=== PATIENT | female | born 1940 | race Caucasian/White ===

== ENCOUNTER 2017-11-26 10:45 | Emergency (ER) | payer MEDICARE, OTHER ==
[2017-11-26 11:17] LABS: #Basophils 0.1 thou/uL (0.0-0.2); #Eosinphils 0.2 thou/uL (0.0-0.7); #Lymphocytes 2.1 thou/uL (1.20-3.40); #Monocytes 0.6 thou/uL (0.11-0.59); %Basophils 1.4 % (0.0-1.0); %Eosinophils 3.1 % (0.0-10.0); %Lymphocytes 29.5 % (21.0-51.0); %Monocytes 8.5 % (0.0-10.0); %Neutrophils 57.5 % (42.0-75.0); Hemoglobin 12.6 g/dL (12.0-16.0); Mean Corpuscular HGB CONC 32.7 g/dL (32.0-36.0); Mean Corpuscular Hemoglobin 27.5 pg (27.0-31.0); Mean Corpuscular Volume 83.9 fl (81.0-99.0); Mean Platelet Volume 8.4 fL (7.4-10.4); Platelet Count 290 thou/uL (130-400); RBC Distribution Width 12.3 % (11.5-14.5)
[2017-11-26 11:27] LABS: Bilirubin Negative (Negative); Blood, Urine Negative (Negative); Clarity CLEAR (Clear); Glucose, Urine (Dipstick) Negative (Negative); Leukocyte Negative (Negative); Nitrite Negative (Negative); Protein, Urine (Dipstick) Negative (Neg-Trace); Specific Gravity, Urine 1.014 (1.002-1.036); Urobilinogen 0.2 mg/dL (0.2-1.0); pH, Urine 5.5 (5.0-9.0)
[2017-11-26 11:33] LABS: PTT 28.1 SEC (22.9-36.1); Prothrombin Time 12.8 SEC (12.0-14.7)
[2017-11-26 11:39] LABS: ALT (SGPT) 11 U/L (8-55); AST (SGOT) 12 U/L (5-34); Albumin 4.1 g/dL (3.4-4.8); Alkaline Phosphatase 90 U/L (40-150); Anion Gap 12 mmol/L (10-20); BUN (Urea Nitrogen) 27 mg/dL (9.8-20.1); Bilirubin, Total 0.2 mg/dL (0.2-1.2); CK (CPK) 49 U/L (29-168); Calc. Creatinine Clearance 0 mL/min (70-130); Carbon Dioxide 29 mmol/L (23-31); Chloride 102 mmol/L (98-107); Estimated GFR-MDRD 73; Globulin 3.2 g/dL (2.4-3.5); Glucose 180 mg/dL (83-110); Potassium 4.6 mmol/L (3.5-5.1); Protein, Total 7.3 g/dL (6.0-8.3); Sodium 138 mmol/L (136-145)
[2017-11-26 11:43] LABS: CKMB 0.7 ng/mL (0-6.6); Troponin I Less than 0.010 ng/mL (< 0.028)
--- NOTE | 2017-11-26 12:28 | CT ---
CT BRAIN WITHOUT CONTRAST: History: Altered mental status, dementia. FINDINGS: Comparison is made with exam of 03-02-16. Changes of cortical atrophy and chronic small vessel ischemic disease are again seen. The ventricular size is stable and the basilar cisterns patent. No evidence of acute infarct, hemorrhage, midline sh ift or abnormal extraaxial fluid collections are seen. The bony calvarium is intact. The visualized p aranasal sinuses and mastoid air cells are well aerated. IMPRESSION: Stable exam. No CT evidence of acute intracranial process. POS: [facility]
--- NOTE | 2017-11-26 13:44 | RAD ---
SINGLE VIEW OF THE CHEST: COMPARISON: 03/02/16. HISTORY: Altered mental status with left-sided facial paresthesias. Cough. FINDINGS: A single view of the chest shows a normal-size cardiomediastinal silhouette. There is no evidence of consolidation, mass, or pleural effusion. Degenerative changes are seen in the spine. Hardware is seen in the right humerus. IMPRESSION: No evidence of acute cardiopulmonary disease. POS: [facility]
== END 2017-11-26 12:55 | disposition home or self-care (01) ==
LOC: ERS 10:45
DX: R41.82 Altered mental status, unspecified (principal); E11.9 Type 2 diabetes mellitus without complications; K21.9 Gastro-esophageal reflux disease without esophagitis; F32.9 Major depressive disorder, single episode, unspecified; Z79.899 Other long term (current) drug therapy; Z79.84 Long term (current) use of oral hypoglycemic drugs
CPT/HCPCS: 70450; 71045; 80053; 81003; 82553; 84484; 85025; 85610; 85730

== ENCOUNTER 2018-03-23 05:46 | Emergency (ER) | payer MEDICARE ==
--- NOTE | 2018-03-23 11:23 | RAD ---
LEFT WRIST RADIOGRAPHS THREE VIEWS: Date: 03-23-18 Provided Clinical History: Pain status post fall. FINDINGS: There is no evidence for fracture or other acute osseous abnormality. If there is persistent clinical concern, conservative management and follow up imaging are advised. IMPRESSION: As above. POS: [facility]
== END 2018-03-23 10:06 | disposition home or self-care (01) ==
LOC: ERS 05:46
DX: M25.532 Pain in left wrist (principal); E11.9 Type 2 diabetes mellitus without complications; E78.5 Hyperlipidemia, unspecified; I10 Essential (primary) hypertension; F32.9 Major depressive disorder, single episode, unspecified; F03.90 Unspecified dementia, unspecified severity, without behavioral disturbance, psychotic disturbance, mood disturbance, and anxiety; Z79.899 Other long term (current) drug therapy; Z79.84 Long term (current) use of oral hypoglycemic drugs

== ENCOUNTER 2018-03-30 16:01 | Outpatient (CLI) | payer MEDICARE | END 2018-03-30 16:02 | disposition home or self-care (01) | LOC: BICCT 16:01 | PROVIDERS: ATTEND Orthopaedic Surgery Hand Surgery | DX: S62.035A Nondisplaced fracture of proximal third of navicular [scaphoid] bone of left wrist, initial encounter for closed fracture (principal) ==

== ENCOUNTER 2018-04-06 10:38 | Day surgery (SDC) | payer MEDICARE ==
[2018-04-05 13:57] VITALS: BMI 27.3
[2018-04-06] MEDS ORDERED: CEFAZOLIN/Water 2 GM/20 ML SYRINGE ONE (11:54)
[2018-04-06] MEDS ORDERED: Bacitracin Zinc Ointment 30 gm TUBE ONE (13:03)
[2018-04-06] MEDS ORDERED: Sodium Chloride 0.9% 10 ML ONE (13:03)
[2018-04-06] MEDS ORDERED: Bupivacaine PF 0.5% 30 ML VIAL ONE (13:03)
[2018-04-06] MEDS ORDERED: Thrombin 5000 UNITS/5 ML VIAL ONE (13:03)
[2018-04-06] MEDS ORDERED: Fentanyl 100 MCG/2 ML VIAL ONE (13:07)
[2018-04-06] MEDS ORDERED: Ondansetron HCl/PF 4 MG/2 ML Vial ONE (15:05)
[2018-04-06] MEDS ORDERED: PROPOFOL 200 MG/20 ML VIAL ONE (15:05)
[2018-04-06] MEDS ORDERED: Dexamethasone 20 MG/5 ML VIAL ONE (15:05)
[2018-04-06] MEDS ORDERED: Lidocaine 1% PF 5 ML VIAL ONE (15:05)
--- NOTE | 2018-04-06 18:46 | OP ---
POSTOPERATIVE DIAGNOSIS: Squamous cell carcinoma of left hand, 1.5 cm primary area with a 2 mm rim c ircumferentially off darkened skin consistent with cancer precursor. PROCEDURE PERFORMED: 1. Excisional biopsy of a neoplasm, hand, total of 1.5 cm diameter area. 2. Closure of the defect using a rotational flap, right dorsal hand. SPECIMEN SENT: Biopsy mass with a 2-3 mm margin that was proven by a fresh frozen pathological repor t today to the tumor free. BLOOD LOSS: 10 mL. TOURNIQUET TIME: 11 minutes. DESCRIPTION OF PROCEDURE: After successful general LMA, the limb was prepped and draped. The patien t had the right upper extremity undergo timeout, exsanguination, and then tourniquet inflation to 225 mmHg pressure. We identified the mass, and at this time, we felt that we did an oblong type harvest past, kept the margins normal, this could in this problem for this patient dislocation. Thus, the m ass was lifted up, hemostasis obtained to include two large veins, and along with it came the 2-3 mm rim where there was some cancer recurrences and then another spot, 6-7 mm away for others. We now skelton d the mass and pathology, released the tourniquet, obtained hemostasis, and then closed with suture, awaiting pathologic report from outside source. Once we heard that the margin was free of tumor and was a squamous cell carcinoma variant, we the tumor removed and then closed the wound with a ro tational flap with the distal end going more distal.
== END 2018-04-06 16:51 | disposition home or self-care (01) ==
LOC: SDC 10:38
PROVIDERS: ATTEND Orthopaedic Surgery Hand Surgery
PROC: 0HXFXZZ Transfer Right Hand Skin, External Approach (ICD-10-PCS; principal; 2018-04-06)
PROC: 0HBFXZZ Excision of Right Hand Skin, External Approach (ICD-10-PCS; 2018-04-06)
DX: C44.622 Squamous cell carcinoma of skin of right upper limb, including shoulder (principal); E78.00 Pure hypercholesterolemia, unspecified; M19.90 Unspecified osteoarthritis, unspecified site; I10 Essential (primary) hypertension; M81.0 Age-related osteoporosis without current pathological fracture; E11.9 Type 2 diabetes mellitus without complications; F32.9 Major depressive disorder, single episode, unspecified; I25.10 Atherosclerotic heart disease of native coronary artery without angina pectoris; Z86.73 Personal history of transient ischemic attack (TIA), and cerebral infarction without residual deficits; Z79.82 Long term (current) use of aspirin; Z79.84 Long term (current) use of oral hypoglycemic drugs; Z79.899 Other long term (current) drug therapy; Z88.1 Allergy status to other antibiotic agents; Z88.6 Allergy status to analgesic agent; Z88.8 Allergy status to other drugs, medicaments and biological substances
CPT/HCPCS: 88305; 88331; 88332; A4216; J1100; J2001; J2405; J2704; J3010; J3490; S0020

== ENCOUNTER 2018-04-08 09:51 | Emergency (ER) | payer MEDICARE ==
[2018-04-08 11:34] LABS: #Basophils 0.1 thou/uL (0.0-0.2); #Eosinphils 0.1 thou/uL (0.0-0.7); #Monocytes 0.7 thou/uL (0.11-0.59); %Eosinophils 1.3 % (0.0-10.0); %Lymphocytes 29.9 % (21.0-51.0); %Neutrophils 60.9 % (42.0-75.0); Hemoglobin 12.3 g/dL (12.0-16.0); Mean Corpuscular HGB CONC 30.7 g/dL (32.0-36.0); Mean Corpuscular Hemoglobin 26.2 pg (27.0-31.0); Mean Corpuscular Volume 85.3 fL (78.0-98.0); Mean Platelet Volume 8.1 fL (7.4-10.4); Platelet Count 320 thou/uL (130-400); RBC Distribution Width 12.3 % (11.5-14.5); Red Blood Cell (RBC) Count 4.71 mill/uL (4.20-5.40); White Blood Cell (WBC) Count 9.9 thou/uL (4.8-10.8)
[2018-04-08 11:36] LABS: Bilirubin Negative (Negative); Blood, Urine Negative (Negative); Clarity CLEAR (Clear); Glucose, Urine (Dipstick) 100 mg/dL (Negative); Leukocyte Trace (Negative); Nitrite Negative (Negative); Protein, Urine (Dipstick) Negative (Neg-Trace); Specific Gravity, Urine 1.014 (1.002-1.036)
[2018-04-08 11:39] LABS: Bacteria/HPF None Seen HPF (None Seen); Hyaline Casts/LPF 0-3 HYALINE CAST LPF (0-3 Hyaline); Pathc Cast-AUWi Flag 0.14 (0-2.49); Squamous Epithelial 0-3 HPF (0-3); WBC/HPF 0-3 HPF (0-3)
[2018-04-08 11:46] LABS: Amphetamine Detected (NotDetected); Barbiturates Screen Not Detected (NotDetected); Benzodiazepine Screen Not Detected (NotDetected); Cocaine Metabolite Screen Not Detected (NotDetected); Medtox Control Line Valid? VALID (VALID); Medtox Reader # READER 1; Methadone Not Detected (NotDetected); Methamphetamine Not Detected (NotDetected); Opiate Screen Detected (NotDetected); Oxycodone Screen Not Detected (NotDetected); Phencyclidine (PCP) Not Detected (NotDetected); THC/Cannabinoid Screen Not Detected (NotDetected); Tricyclic Screen Not Detected (NotDetected)
[2018-04-08 12:02] LABS: Acetaminophen Less than 6.0 mcg/mL (10.0-30.0); Alcohol Less than 10 mg/dL (Less than 10); Salicylate Less than 8.0 mg/dL (15.0-30.0)
[2018-04-08 12:03] LABS: ALT (SGPT) Less than 7 U/L (8-55); AST (SGOT) 13 U/L (5-34); Albumin 4.3 g/dL (3.4-4.8); Alcohol Less than 10 mg/dL (Less than 10); Alkaline Phosphatase 81 U/L (40-150); Anion Gap 13 mmol/L (10-20); BUN (Urea Nitrogen) 20 mg/dL (9.8-20.1); Bilirubin, Total 0.2 mg/dL (0.2-1.2); Calc. Creatinine Clearance 0 mL/min (70-130); Calcium 9.7 mg/dL (7.8-10.44); Carbon Dioxide 23 mmol/L (23-31); Chloride 104 mmol/L (98-107); Estimated GFR-MDRD 54; Globulin 3.1 g/dL (2.4-3.5); Glucose 235 mg/dL (83-110); Protein, Total 7.4 g/dL (6.0-8.3); Sodium 136 mmol/L (136-145)
== END 2018-04-08 14:26 | disposition home or self-care (01) ==
LOC: ERS 09:51
DX: F43.20 Adjustment disorder, unspecified (principal); Z48.817 Encounter for surgical aftercare following surgery on the skin and subcutaneous tissue; E11.9 Type 2 diabetes mellitus without complications; E78.5 Hyperlipidemia, unspecified; I10 Essential (primary) hypertension; Z86.73 Personal history of transient ischemic attack (TIA), and cerebral infarction without residual deficits; K21.9 Gastro-esophageal reflux disease without esophagitis; F32.9 Major depressive disorder, single episode, unspecified; F03.90 Unspecified dementia, unspecified severity, without behavioral disturbance, psychotic disturbance, mood disturbance, and anxiety; Z79.899 Other long term (current) drug therapy; Z79.84 Long term (current) use of oral hypoglycemic drugs
CPT/HCPCS: 36415; 80053; 80306; 80307; 81003; 81015; 84443; 85025; 99283

== ENCOUNTER 2018-11-17 17:55 | Emergency (ER) | payer MEDICARE ==
--- NOTE | 2018-11-17 18:28 | RAD ---
RIGHT HAND THREE VIEWS: 11/17/18 HISTORY: Fall. Hand and thumb injury. FINDINGS: Joint space loss. Osteophytosis and subchondral sclerosis with lateral subluxation at the first carpo metacarpal joint. Scattered osteophytosis and degenerative changes elsewhere. No acute fracture or di slocation. IMPRESSION: Severe osteoarthritic changes at the right first carpometacarpal joint. POS: [facility]
== END 2018-11-17 18:42 | disposition home or self-care (01) ==
LOC: SCSER 17:55
DX: S60.012A Contusion of left thumb without damage to nail, initial encounter (principal); E11.9 Type 2 diabetes mellitus without complications; E78.5 Hyperlipidemia, unspecified; I10 Essential (primary) hypertension; K21.9 Gastro-esophageal reflux disease without esophagitis; Z86.73 Personal history of transient ischemic attack (TIA), and cerebral infarction without residual deficits; F32.9 Major depressive disorder, single episode, unspecified; F03.90 Unspecified dementia, unspecified severity, without behavioral disturbance, psychotic disturbance, mood disturbance, and anxiety; W18.30XA Fall on same level, unspecified, initial encounter; Y93.02 Activity, running

== ENCOUNTER 2018-12-07 14:28 | Emergency (ER) | payer MEDICARE ==
[2018-12-07 14:53] LABS: #Basophils 0.1 thou/uL (0.0-0.2); #Eosinphils 0.1 thou/uL (0.0-0.7); #Lymphocytes 1.7 thou/uL (1.20-3.40); #Neutrophils 10.7 thou/uL (1.40-6.50); %Eosinophils 0.4 % (0.0-10.0); %Lymphocytes 12.9 % (21.0-51.0); %Neutrophils 78.7 % (42.0-75.0); Hemoglobin 13.8 g/dL (12.0-16.0); Mean Corpuscular HGB CONC 33.7 g/dL (32.0-36.0); Mean Corpuscular Hemoglobin 27.3 pg (27.0-31.0); Platelet Count 288 thou/uL (130-400); RBC Distribution Width 12.6 % (11.5-14.5); Red Blood Cell (RBC) Count 5.05 mill/uL (4.20-5.40); White Blood Cell (WBC) Count 13.5 thou/uL (4.8-10.8)
--- NOTE | 2018-12-07 15:02 | RAD ---
Portable frontal chest radiograph: 12/07/2018 COMPARISON: 11/26/2017 HISTORY: Syncope FINDINGS: Stable increased linear interstitial density with pulmonary hyperinflation. Heart and media stinal contours are stable. No pneumothorax or pleural fluid. No focal consolidation or alveolar edema. IMPRESSION: No acute findings.
[2018-12-07 15:12] LABS: ALT (SGPT) 8 U/L (8-55); AST (SGOT) 9 U/L (5-34); Albumin 4.2 g/dL (3.4-4.8); Alkaline Phosphatase 93 U/L (40-150); Anion Gap 15 mmol/L (10-20); BUN (Urea Nitrogen) 9 mg/dL (9.8-20.1); Bilirubin, Total 0.7 mg/dL (0.2-1.2); CK (CPK) 24 U/L (29-168); Calc. Creatinine Clearance 0 mL/min (70-130); Calcium 10.1 mg/dL (7.8-10.44); Carbon Dioxide 23 mmol/L (23-31); Chloride 100 mmol/L (98-107); Estimated GFR-MDRD 69; Globulin 3.6 g/dL (2.4-3.5); Glucose 233 mg/dL (83-110); Lipase 23 U/L (8-78); Potassium 4.2 mmol/L (3.5-5.1); Protein, Total 7.8 g/dL (6.0-8.3); Sodium 134 mmol/L (136-145)
--- NOTE | 2018-12-07 15:42 | CT ---
CT OF THE BRAIN WITHOUT CONTRAST 12/07/18 INDICATION: 78-year-old female with report of patient being found in the breakfast hallway, slid down in her couc h. Patient was found lying on floor. COMPARISON: Prior CT of the brain dated 11/26/17. FINDINGS: No acute infarct, hemorrhage or hydrocephalus is present. Moderate chronic small vessel white matter ischemic change and mild generalized cerebral atrophy is stable. Septum pellucidum and third ventricl e are midline. Scattered vascular calcifications involving the intracranial arteries is stable. Visua lized paranasal sinuses and mastoid air cells are clear. The skull is intact. IMPRESSION: 1. No acute intracranial abnormality. 2. Stable chronic findings as above. POS: [facility]
--- NOTE | 2018-12-07 15:46 | CT ---
CT CERVICAL SPINE: 12/07/18 PROVIDED CLINICAL HISTORY: Trauma. FINDINGS: Comparison is made with the study dated 03/03/13. There is no evidence for fracture or traumatic subluxation. Postoperative changes and advanced multil evel cervical degenerative change are redemonstrated. There is no prevertebral soft tissue swelling a pparent. Carotid calcifications are seen. The visualized lung apices are free of significant opacity. IMPRESSION: No evidence for fracture or traumatic subluxation. POS: [facility]
[2018-12-07] MEDS ORDERED: Acetaminophen 500 MG TAB ONE (16:04)
[2018-12-07 17:32] LABS: Bilirubin Small (Negative); Blood, Urine Negative (Negative); Clarity Slightly Cloudy (Clear); Glucose, Urine (Dipstick) >=1000 mg/dL (Negative); Leukocyte Negative (Negative); Nitrite Negative (Negative); Protein, Urine (Dipstick) 100 mg/dL (Neg-Trace); Specific Gravity, Urine 1.025 (1.005-1.030); pH, Urine 5.5 (5.0-9.0)
[2018-12-07 17:34] LABS: Bacteria/HPF None Seen HPF (None Seen); Squamous Epithelial 0-3 HPF (0-3); Transitional Epithelial 0-3 HPF (0-3); WBC/HPF 0-3 HPF (0-3)
== END 2018-12-07 17:44 | disposition home or self-care (01) ==
LOC: SCSER 14:28
DX: R51 Headache (principal); E78.5 Hyperlipidemia, unspecified; I10 Essential (primary) hypertension; F03.90 Unspecified dementia, unspecified severity, without behavioral disturbance, psychotic disturbance, mood disturbance, and anxiety; E11.9 Type 2 diabetes mellitus without complications; F32.9 Major depressive disorder, single episode, unspecified; Z79.84 Long term (current) use of oral hypoglycemic drugs; Z79.82 Long term (current) use of aspirin; Z86.73 Personal history of transient ischemic attack (TIA), and cerebral infarction without residual deficits; Z79.899 Other long term (current) drug therapy; W08.XXXA Fall from other furniture, initial encounter
CPT/HCPCS: 51701; 70450; 71045; 72125; 80053; 81003; 81015; 82550; 83690; 84484; 85025; 93005; A4353

== ENCOUNTER 2019-06-10 09:24 | Emergency (ER) | payer MEDICARE ==
[2019-06-10 10:02] LABS: #Basophils 0.1 thou/uL (0.0-0.2); #Eosinphils 0.1 thou/uL (0.0-0.7); #Lymphocytes 1.5 thou/uL (1.20-3.40); #Neutrophils 8.5 thou/uL (1.40-6.50); %Basophils 0.7 % (0.0-1.0); %Eosinophils 0.6 % (0.0-10.0); %Lymphocytes 13.8 % (21.0-51.0); %Monocytes 8.8 % (0.0-10.0); %Neutrophils 76.1 % (42.0-75.0); Hemoglobin 12.4 g/dL (12.0-16.0); Mean Corpuscular HGB CONC 32.7 g/dL (32.0-36.0); Mean Corpuscular Hemoglobin 26.8 pg (27.0-31.0); Mean Corpuscular Volume 81.7 fL (78.0-98.0); Mean Platelet Volume 8.3 fL (7.4-10.4); Platelet Count 259 thou/uL (130-400); RBC Distribution Width 13.2 % (11.5-14.5); Red Blood Cell (RBC) Count 4.62 mill/uL (4.20-5.40); White Blood Cell (WBC) Count 11.2 thou/uL (4.8-10.8)
--- NOTE | 2019-06-10 10:05 | RAD ---
Portable chest: HISTORY: Cough COMPARISON: 12/07/2018 FINDINGS: Lung jade are clear. Heart and mediastinum appear unremarkable. Vascularity is normal. Visualized osseous structures unremarkable. IMPRESSION: No acute finding
--- NOTE | 2019-06-10 10:05 | RAD ---
Right ankle: 3 VIEWS INDICATION:Injury and pain COMPARISON:None FINDINGS: Soft tissue swelling at the ankle. No evidence of fracture. No osseous abnormality identified. IMPRESSION: No evidence of fracture
--- NOTE | 2019-06-10 10:06 | RAD ---
EXAM: Right tibia-fibula: 2 views INDICATIONS: Trauma COMPARISON: None. FINDINGS: No fracture. Degenerative change at the knee. No osseous abnormality. IMPRESSION: No acute finding
[2019-06-10 10:31] LABS: ALT (SGPT) 16 U/L (8-55); AST (SGOT) 12 U/L (5-34); Albumin 4.2 g/dL (3.4-4.8); Alkaline Phosphatase 83 U/L (40-110); Anion Gap 15 mmol/L (10-20); BUN (Urea Nitrogen) 14 mg/dL (9.8-20.1); Bilirubin, Total 0.5 mg/dL (0.2-1.2); CK (CPK) 42 U/L (29-168); Calc. Creatinine Clearance 0 mL/min (70-130); Calcium 9.1 mg/dL (7.8-10.44); Carbon Dioxide 25 mmol/L (23-31); Chloride 100 mmol/L (98-107); Estimated GFR-MDRD 52; Globulin 2.4 g/dL (2.4-3.5); Glucose 336 mg/dL (83-110); Potassium 3.9 mmol/L (3.5-5.1); Protein, Total 6.6 g/dL (6.0-8.3); Sodium 136 mmol/L (136-145)
[2019-06-10 10:40] LABS: Bilirubin Negative (Negative); Blood, Urine Negative (Negative); Clarity Clear (Clear); Glucose, Urine (Dipstick) Greater than 1000 mg/dL (Negative); Leukocyte Negative Leu/uL (Negative); Nitrite Negative (Negative); Protein, Urine (Dipstick) Negative (Neg-Trace); Urobilinogen Normal mg/dL (Less than 2)
--- NOTE | 2019-06-10 11:21 | CT ---
CT Brain WO Con: 06/10/2019 10:56 AM CLINICAL HISTORY: [facility] patient status post fall with concern for head injury. IMAGING TECHNIQUE: Multiple CT images were obtained of the brain without IV contrast. COMPARISON: CT the brain dated December 07, 2018 FINDINGS: Brain: No acute infarct or hemorrhage is evident. No midline shift. There is stable moderate chroni c small vessel white matter ischemic change. Ventricles: Normal. No hydrocephalus.. Skull: Intact.. Visualized Paranasal sinuses: Clear.. Mastoid air cells:Clear. Extracranial soft tissues:Normal. IMPRESSION: No acute intracranial abnormality.
== END 2019-06-10 13:45 | disposition home or self-care (01) ==
LOC: ERS 09:24
DX: S93.401A Sprain of unspecified ligament of right ankle, initial encounter (principal); R53.1 Weakness; E11.9 Type 2 diabetes mellitus without complications; E78.5 Hyperlipidemia, unspecified; K21.9 Gastro-esophageal reflux disease without esophagitis; F41.9 Anxiety disorder, unspecified; F32.9 Major depressive disorder, single episode, unspecified; F03.90 Unspecified dementia, unspecified severity, without behavioral disturbance, psychotic disturbance, mood disturbance, and anxiety; Z86.73 Personal history of transient ischemic attack (TIA), and cerebral infarction without residual deficits; W18.30XA Fall on same level, unspecified, initial encounter
CPT/HCPCS: 36415; 70450; 71045; 80053; 81003; 82550; 84484; 85025; 87086; 93005

== ENCOUNTER 2019-08-30 08:50 | Emergency (ER) | payer MEDICARE ==
[2019-08-30 10:16] LABS: Bacteria/HPF None Seen HPF (None Seen); Bilirubin Negative (Negative); Blood, Urine Negative (Negative); Clarity Clear (Clear); Glucose, Urine (Dipstick) >=1000 mg/dL (Negative); Leukocyte 25 Leu/uL (Negative); Nitrite Negative (Negative); Protein, Urine (Dipstick) 10 mg/dL (Neg-Trace); RBC/HPF 0-3 HPF (0-3); Urobilinogen Normal mg/dL (Less than 2)
[2019-08-30 10:18] LABS: #Basophils 0.1 thou/uL (0.0-0.2); #Eosinphils 0.1 thou/uL (0.0-0.7); #Lymphocytes 2.5 thou/uL (1.20-3.40); #Neutrophils 8.7 thou/uL (1.40-6.50); %Lymphocytes 19.9 % (21.0-51.0); %Monocytes 7.8 % (0.0-10.0); %Neutrophils 70.3 % (42.0-75.0); Hemoglobin 12.8 g/dL (12.0-16.0); Mean Corpuscular HGB CONC 32.6 g/dL (32.0-36.0); Mean Corpuscular Hemoglobin 27.1 pg (27.0-31.0); Mean Platelet Volume 8.6 fL (7.4-10.4); Platelet Count 310 thou/uL (130-400); RBC Distribution Width 13.5 % (11.5-14.5); Red Blood Cell (RBC) Count 4.73 mill/uL (4.20-5.40); White Blood Cell (WBC) Count 12.4 thou/uL (4.8-10.8)
[2019-08-30 10:31] LABS: ALT (SGPT) 10 U/L (8-55); AST (SGOT) 13 U/L (5-34); Albumin 4.2 g/dL (3.4-4.8); Alkaline Phosphatase 90 U/L (40-110); Anion Gap 18 mmol/L (10-20); BUN (Urea Nitrogen) 11 mg/dL (9.8-20.1); Bilirubin, Total 0.4 mg/dL (0.2-1.2); CK (CPK) 24 U/L (29-168); Calc. Creatinine Clearance 0 mL/min (70-130); Calcium 9.3 mg/dL (7.8-10.44); Carbon Dioxide 23 mmol/L (23-31); Chloride 101 mmol/L (98-107); Estimated GFR-MDRD 65; Globulin 3.2 g/dL (2.4-3.5); Glucose 186 mg/dL (83-110); Potassium 4.4 mmol/L (3.5-5.1); Protein, Total 7.4 g/dL (6.0-8.3); Sodium 138 mmol/L (136-145)
--- NOTE | 2019-08-30 10:50 | CT ---
CT BRAIN PERFORMED WITHOUT CONTRAST ENHANCEMENT: Date: 08/30/2019 HISTORY: Fall with head injury. COMPARISON: 06/10/2019 study. FINDINGS: Some generalized ventricular and sulcal prominence. There is marked decreased attenuation to the román ventricular white matter consistent with some chronic white matter change. There are no signs of intr acerebral hemorrhage or extra-axial fluid collections. Mastoid air cells and visualized sinuses are c lear. IMPRESSION: No acute intracranial abnormalities. POS: [facility]
--- NOTE | 2019-08-30 11:30 | CT ---
CT OF CERVICAL SPINE PERFORMED WITHOUT CONTRAST ENHANCEMENT: Date: 08/30/2019 HISTORY: Neck pain status post fall. COMPARISON: 12/07/18 study. FINDINGS: The vertebral bodies maintain normal height. Severe disc narrowing is seen at the C4-5 and C5-6 level s. Post laminectomy changes are seen from the C4 to the C6 level. The facets are in normal alignment. There are degenerative changes at the articulation of the dens with anterior arch of C1 with subchon dral cystic changes of the base of the dens that appear stable as compared to the prior exam. At the C3-4 level, there is mild bilateral foraminal narrowing, greater on the left. There is mild bilateral foraminal narrowing at C4-5 and more pronounced foraminal narrowing at the C5-6 level. There is also left-sided foraminal narrowing at C6-7. There is no CT evidence for fracture. Lung apices show COPD type change. IMPRESSION: Marked arthritic changes of the spine and postop change. No CT evidence for fracture. POS: [facility]
--- NOTE | 2019-08-30 12:26 | RAD ---
RIGHT FOOT 3 VIEWS: Date: 08/30/2019 HISTORY: Fall. Pain. FINDINGS: Lisfranc alignment is maintained. Preserved joint spaces. No fracture, cortical irregularity, or román osteal reaction. No significant soft tissue swelling. IMPRESSION: No fracture. POS: [facility]
--- NOTE | 2019-08-30 12:26 | RAD ---
PORTABLE CHEST: Date: 08/30/2019 HISTORY: Fall. COMPARISON: 06/10/2019 study. FINDINGS: Heart size within normal limits. There are atherosclerotic changes of the aorta. Lungs show some logistic manager joshua appearing change. Bones are demineralized. No rib fractures noted. IMPRESSION: No active intrathoracic disease. POS: [facility]
--- NOTE | 2019-08-31 14:14 | RAD ---
3 views of right ankle: 08/31/2019 COMPARISON: 06/10/2019 HISTORY: Trauma, pain FINDINGS: Lateral soft tissue swelling noted. No displaced fracture or evidence of dislocation. Talar dome and ankle mortise appear intact. IMPRESSION: Lateral soft tissue swelling with no acute fracture or dislocation.
== END 2019-08-30 12:34 | disposition home or self-care (01) ==
LOC: ERS 08:50
DX: S93.401A Sprain of unspecified ligament of right ankle, initial encounter (principal); I10 Essential (primary) hypertension; K21.9 Gastro-esophageal reflux disease without esophagitis; F03.90 Unspecified dementia, unspecified severity, without behavioral disturbance, psychotic disturbance, mood disturbance, and anxiety; F32.9 Major depressive disorder, single episode, unspecified; F41.9 Anxiety disorder, unspecified; E11.9 Type 2 diabetes mellitus without complications; Z86.73 Personal history of transient ischemic attack (TIA), and cerebral infarction without residual deficits; Z79.899 Other long term (current) drug therapy; Z79.84 Long term (current) use of oral hypoglycemic drugs; W19.XXXA Unspecified fall, initial encounter
CPT/HCPCS: 70450; 71045; 72125; 80053; 81003; 81015; 82550; 84484; 85025; 93005

== ENCOUNTER 2019-09-30 10:28 | Emergency (ER) | payer MEDICARE ==
[2019-09-30] MEDS ORDERED: Ondansetron ODT 4 MG TAB ONE (11:03)
--- NOTE | 2019-09-30 11:49 | RAD ---
AP PELVIS 2 VIEWS INCLUDING RIGHT AND LEFT HIPS 2 VIEWS: Date: 09/30/2019 HISTORY: Injury from a fall, trauma. FINDINGS: Mild arthrosis and degenerative changes. No acute fracture or dislocation. IMPRESSION: No acute fracture or dislocation. POS: [facility]
--- NOTE | 2019-09-30 13:33 | CT ---
CT BRAIN WITHOUT CONTRAST: 09/30/19 HISTORY: Trauma. Mechanical fall. Headache. FINDINGS: Comparison made with exam of 08/30/19. Changes of cortical atrophy and chronic small vessel ischemic disease again seen. The ventricular siz e is stable and the basilar cisterns patent. No evidence of acute infarct, hemorrhage, midline shift or abnormal extra-axial fluid collections are seen. The bony calvarium is intact. The visualized para nasal sinuses and mastoid air cells are well aerated. IMPRESSION: No CT evidence of acute intracranial process. POS: [facility]
--- NOTE | 2019-09-30 13:34 | CT ---
CT CERVICAL SPINE WITH CORONAL AND SAGITTAL REFORMATIONS: HISTORY: Fall, neck pain. COMPARISON: 08/30/2019. FINDINGS: Multilevel degenerative changes are again seen. Postop changes of laminectomy from C4 through C6 lev els are again noted. No acute fracture, subluxation, or facet malalignment is identified. IMPRESSION: Stable. No acute process. POS: [facility]
== END 2019-09-30 12:42 | disposition home or self-care (01) ==
LOC: ERS 10:28
DX: S16.1XXA Strain of muscle, fascia and tendon at neck level, initial encounter (principal); R11.0 Nausea; E11.9 Type 2 diabetes mellitus without complications; E78.5 Hyperlipidemia, unspecified; I10 Essential (primary) hypertension; K21.9 Gastro-esophageal reflux disease without esophagitis; F03.90 Unspecified dementia, unspecified severity, without behavioral disturbance, psychotic disturbance, mood disturbance, and anxiety; F41.9 Anxiety disorder, unspecified; F32.9 Major depressive disorder, single episode, unspecified; Z86.73 Personal history of transient ischemic attack (TIA), and cerebral infarction without residual deficits; Z79.899 Other long term (current) drug therapy; Z79.84 Long term (current) use of oral hypoglycemic drugs; W18.30XA Fall on same level, unspecified, initial encounter; Y92.129 Unspecified place in nursing home as the place of occurrence of the external cause
CPT/HCPCS: 70450; 72125; 72170; 94760; Q0162

== ENCOUNTER 2019-10-25 20:19 | Emergency (ER) | payer MEDICARE ==
--- NOTE | 2019-10-25 21:27 | CT ---
CT head noncontrast HISTORY: Fall. Altered mental status. COMPARISON: 10/18/2019. FINDINGS: There is no evidence of acute intracranial hemorrhage or infarct. Diffuse cortical atrophy and chronic ischemic small vessel disease are again demonstrated. There is no mass effect or shift of midline structures. Visualized paranasal sinuses remain well aera derian. IMPRESSION : Chronic-type findings are stable. No acute intracranial abnormalities are demonstrated.
--- NOTE | 2019-10-25 21:35 | RAD ---
Left hand 3 views HISTORY: Left hand injury. FINDINGS: Widespread mild joint space narrowing. Minimal osteophytosis. Smoothly marginated cortical defect involves the lateral head of the proximal phalanx of the little f antwan, near full shaft width posterior displacement is also present at the proximal interphalangeal joint. No acute fracture fragment apparent. IMPRESSION : Posterior dislocation with the appearance of an old injury at the left little finger proximal interph alangeal joint. Clinical correlation regarding acute injury at this site is required. Mild osteoarthritic changes.
--- NOTE | 2019-10-25 21:36 | RAD ---
Chest one view HISTORY: Fall. Dyspnea. COMPARISON: 10/18/2019. FINDINGS: Cardiac silhouette and pulmonary vasculature are unremarkable. Mediastinum is midline. No confluent airspace consolidation or evidence of pneumothorax. Cardiac reza tor leads overlie the chest. IMPRESSION : No active cardiopulmonary abnormalities are demonstrated.
[2019-10-25] MEDS ORDERED: Fentanyl 100 MCG/2 ML VIAL ONE (22:43)
== END 2019-10-25 23:05 | disposition home or self-care (01) ==
LOC: ERS 20:19
DX: S63.287A Dislocation of proximal interphalangeal joint of left little finger, initial encounter (principal); F03.90 Unspecified dementia, unspecified severity, without behavioral disturbance, psychotic disturbance, mood disturbance, and anxiety; E11.9 Type 2 diabetes mellitus without complications; E78.5 Hyperlipidemia, unspecified; I10 Essential (primary) hypertension; K21.9 Gastro-esophageal reflux disease without esophagitis; Z86.73 Personal history of transient ischemic attack (TIA), and cerebral infarction without residual deficits; F41.9 Anxiety disorder, unspecified; F32.9 Major depressive disorder, single episode, unspecified; Z79.84 Long term (current) use of oral hypoglycemic drugs; Z79.899 Other long term (current) drug therapy; W01.0XXA Fall on same level from slipping, tripping and stumbling without subsequent striking against object, initial encounter
CPT/HCPCS: 26770; 70450; 71045; 73130; 96372; 99284; J3010